=== PATIENT | female | born 1960 | race Caucasian/White ===

== ENCOUNTER 2019-01-01 07:42 | Day surgery (SDC) | payer MEDICARE ==
[~2019-01-01] VITALS: Ht 175.3 cm; Wt 114.7 kg
[2019-01-01] VITALS (9 sets, daily range): BP systolic 138–175; BP diastolic 64–93
[~2019-01-01 07:42] MED LIST: ASPI81TA46 PO; CHOL50004 PO; FURO-150 PO; INSU100V36 SQ; LEVO112T5 PO; LUBI24CA5 PO; MONT10TA21 PO; OMEP40CA37 PO; PIL2OS EACHEYE; POTA8TAB3 PO; SIMV10TA6 PO; TICA90TA2 PO
[2019-01-01] MEDS ORDERED: sod bicarbonate 150mEq in D5W 1,150 ML IV ONE (08:10)
[2019-01-01] MEDS ORDERED: diphenhydrAMINE 25mg capsule PO PRN (08:15)
[2019-01-01 09:10] LABS: BASOPHILS # (AUTO) 0.2 X10'3 (0-0.2); EOSINOPHILS # (AUTO) 0.2 X10'3 (0-0.9); EOSINOPHILS % (AUTO) 2.9 % (0-6); HEMATOCRIT 40.4 % (35.0-45.0); HEMOGLOBIN 13.3 g/dl (12.0-16.0); LYMPHOCYTES % (AUTO) 35.8 % (21-51); MEAN CORPUSCULAR HEMOGLOBIN 28.9 PG (27.0-31.0); MEAN CORPUSCULAR HGB CONC 32.9 g/dL (33.0-36.5); MEAN CORPUSCULAR VOLUME 87.7 FL (78-98); MEAN PLATELET VOLUME 8.1 FL (7.4-10.4); MONOCYTES # (AUTO) 0.5 X10'3 (0-0.9); MONOCYTES % (AUTO) 8.1 % (2-12); NEUTROPHILS # (AUTO) 2.8 X10'3 (1.8-7.7); NEUTROPHILS % (AUTO) 50.2 % (42-75); PLATELET COUNT 282 X10'3 (140-440); RED CELL DISTRIBUTION WIDTH 14.3 % (11.5-14.5); WHITE BLOOD COUNT 5.6 X10'3 (4.5-11.0)
[2019-01-01 09:17] LABS: ALBUMIN 3.1 G/DL (3.4-5.0); ANION GAP 10 (8-16); BLOOD UREA NITROGEN 18 MG/DL (7-18); BUN/CREATININE RATIO 22.2 (6.6-38.0); CALCIUM 8.9 MG/DL (8.5-10.1); CHLORIDE 107 MMOL/L (99-107); CREATININE 0.81 MG/DL (0.40-0.90); GLUCOSE 61 MG/DL (70-104); INR 1.1 INR; MAGNESIUM 1.9 MG/DL (1.5-2.4); POTASSIUM 3.8 MMOL/L (3.5-5.1); PROTHROMBIN TIME 10.7 SECONDS (9.0-12.0); SODIUM 143 MMOL/L (135-145); eGFR 72 ML/MIN
[2019-01-01] MEDS ORDERED: CLOP75TA35 PO (09:51)
[2019-01-01] MEDS ORDERED: TRAM50TA2 PO (09:51)
[2019-01-01] MEDS ORDERED: ACET-2119 PO (09:51)
[2019-01-01] MEDS ORDERED: CETI-102 PO (09:51)
[2019-01-01] MEDS ORDERED: NITR0.4T51 SL (09:51)
[2019-01-01] MEDS ORDERED: [UNRECOGNIZED DRUG - OTHER] EACHEYE (09:51)
[2019-01-01] MEDS ORDERED: DORZ10DR17 EACHEYE (09:51)
[2019-01-01] MEDS ORDERED: iohexol 350 MG/ML 50ML vial IV ONE (12:05)
[2019-01-01] MEDS ORDERED: midazolam 2 mg/2 ml injection ONE ×2 (12:05→12:19)
[2019-01-01] MEDS ORDERED: LIDOcaine 1% (10mg/ml)w/preservative injection 20ml MDV ONE (12:05)
[2019-01-01] MEDS ORDERED: fentaNYL/PF 50MCG/1 ML 2ML syringe ONE ×2 (12:05→12:19)
[2019-01-01] MEDS ORDERED: iohexol 350MG/ML 100ml bottle IV ONE (12:05)
[2019-01-01] MEDS ORDERED: proCHLORperazine 10 MG/2 ml inj ONE (12:11)
[2019-01-01] MEDS ORDERED: HYDROcodone/acetaminophen 5mg/325mg tablet PO PRN (13:20)
[2019-01-01] MEDS ORDERED: HYDROcodone/acetaminophen 10/325mg tab PO PRN (13:20)
== END 2019-01-01 16:20 | disposition home or self-care (01) ==
LOC: SSTAY O 07:42
PROVIDERS: ATTEND Internal Medicine Cardiovascular Disease
DX: R94.39 Abnormal result of other cardiovascular function study (principal); E10.35 Type 1 diabetes mellitus with proliferative diabetic retinopathy; E78.5 Hyperlipidemia, unspecified; K21.9 Gastro-esophageal reflux disease without esophagitis; E03.9 Hypothyroidism, unspecified; H42 Glaucoma in diseases classified elsewhere; J45.909 Unspecified asthma, uncomplicated; E10.39 Type 1 diabetes mellitus with other diabetic ophthalmic complication; Z95.5 Presence of coronary angioplasty implant and graft; Z98.890 Other specified postprocedural states; Z82.49 Family history of ischemic heart disease and other diseases of the circulatory system; Z72.89 Other problems related to lifestyle; Z88.0 Allergy status to penicillin; Z88.8 Allergy status to other drugs, medicaments and biological substances; Z88.1 Allergy status to other antibiotic agents; Z91.048 Other nonmedicinal substance allergy status; Z87.891 Personal history of nicotine dependence
CPT/HCPCS: 36415; 80048; 82948; 83735; 85025; 85610; 93005; 93458; 99152; 99153; A6257; J0780; J1644; J2001; J2250; J3010; Q0163; Q9967; A4620; C1760; C1769; C1894

== ENCOUNTER 2019-11-07 12:13 | Day surgery (SDC) | payer MEDICARE ==
[~2019-11-07] VITALS: Ht 172.7 cm; Wt 117.6 kg
[2019-11-07] VITALS (8 sets, daily range): BP systolic 137–159; BP diastolic 61–84
[~2019-11-07 12:13] MED LIST changes: +ACET-2119 PO; +ASPI81TA44 PO; -ASPI81TA46 PO; +CETI-90 PO; +CLOP75TA35 PO; +DORZ10DR17 EACHEYE; -LUBI24CA5 PO; +NITR0.4T51 SL; +OMEP40CA13 PO; -OMEP40CA37 PO; -PIL2OS EACHEYE; -SIMV10TA6 PO; +SIMV10TA98 PO; -TICA90TA2 PO; +TRAM50TA2 PO; +[UNRECOGNIZED DRUG - OTHER] EACHEYE
[2019-11-07] MEDS ORDERED: normal saline 1,000 ML IV SCH ×2 (12:40→19:05)
[2019-11-07] MEDS ORDERED: diphenhydrAMINE 25mg capsule PO PRN (12:40)
[2019-11-07] MEDS ORDERED: LATA5DRO EACHEYE (13:23)
[2019-11-07] MEDS ORDERED: SENN-162 PO (13:23)
[2019-11-07] MEDS ORDERED: TIZA2CAP7 PO (13:23)
[2019-11-07 14:41] LABS: BASOPHILS # (AUTO) 0.1 X10'3 (0-0.2); BASOPHILS % (AUTO) 1.9 % (0-1); EOSINOPHILS # (AUTO) 0.1 X10'3 (0-0.9); EOSINOPHILS % (AUTO) 2.3 % (0-6); HEMATOCRIT 34.4 % (35.0-45.0); HEMOGLOBIN 11.5 g/dl (12.0-16.0); LYMPHOCYTES # (AUTO) 1.8 X10'3 (1.1-4.8); LYMPHOCYTES % (AUTO) 28.2 % (21-51); MEAN CORPUSCULAR HEMOGLOBIN 26.3 PG (27.0-31.0); MEAN CORPUSCULAR HGB CONC 33.3 g/dL (33.0-36.5); MEAN PLATELET VOLUME 8.3 FL (7.4-10.4); MONOCYTES # (AUTO) 0.5 X10'3 (0-0.9); MONOCYTES % (AUTO) 7.3 % (2-12); NEUTROPHILS # (AUTO) 3.8 X10'3 (1.8-7.7); NEUTROPHILS % (AUTO) 60.3 % (42-75); PLATELET COUNT 284 X10'3 (140-440); RED BLOOD COUNT 4.35 X10'6 (4.20-5.60); RED CELL DISTRIBUTION WIDTH 15.8 % (11.5-14.5); WHITE BLOOD COUNT 6.3 X10'3 (4.5-11.0)
[2019-11-07 14:50] LABS: ALBUMIN 3.1 G/DL (3.4-5.0); ANION GAP 9 (8-16); BLOOD UREA NITROGEN 14 MG/DL (7-18); BUN/CREATININE RATIO 17.3 (6.6-38.0); CALCIUM 8.4 MG/DL (8.5-10.1); CHLORIDE 108 MMOL/L (99-107); CREATININE 0.81 MG/DL (0.40-0.90); GLUCOSE 105 MG/DL (70-104); MAGNESIUM 1.9 MG/DL (1.5-2.4); POTASSIUM 3.9 MMOL/L (3.5-5.1); SODIUM 144 MMOL/L (135-145); TOTAL CARBON DIOXIDE 27.4 MMOL/L (24-32); eGFR 72 ML/MIN
[2019-11-07] MEDS ORDERED: heparin 1,000unit/ml 10ml vial 10 ML ONE ×2 (15:44→17:45)
[2019-11-07] MEDS ORDERED: iohexol 350MG/ML 100ml bottle IV ONE ×2 (15:44→17:07)
[2019-11-07] MEDS ORDERED: LIDOcaine 1% (10mg/ml)w/preservative injection 20ml MDV ONE ×2 (15:44→17:07)
[2019-11-07] MEDS ORDERED: iohexol 350 MG/ML 50ML vial IV ONE ×2 (15:44→17:07)
[2019-11-07] MEDS ORDERED: fentaNYL/PF 50MCG/1 ML 2ML syringe ONE (17:07)
[2019-11-07] MEDS ORDERED: midazolam 2 mg/2 ml injection ONE ×2 (17:07→17:33)
[2019-11-07] MEDS ORDERED: ondansetron/PF 4mg/2ml inj IV PRN (19:05)
[2019-11-07] MEDS ORDERED: HYDROcodone/acetaminophen 10/325mg tab PO PRN (19:05)
[2019-11-07] MEDS ORDERED: proCHLORperazine 10 MG/2 ml inj IV PRN (19:05)
[2019-11-07] MEDS ORDERED: HYDROcodone/acetaminophen 5mg/325mg tablet PO PRN (19:05)
== END 2019-11-07 20:30 | disposition home or self-care (01) ==
LOC: SSTAY O 12:13
PROVIDERS: ATTEND Internal Medicine Cardiovascular Disease
DX: R07.9 Chest pain, unspecified (principal); I25.118 Atherosclerotic heart disease of native coronary artery with other forms of angina pectoris; E78.5 Hyperlipidemia, unspecified; I10 Essential (primary) hypertension; E03.9 Hypothyroidism, unspecified; E10.39 Type 1 diabetes mellitus with other diabetic ophthalmic complication; H42 Glaucoma in diseases classified elsewhere; K21.9 Gastro-esophageal reflux disease without esophagitis; J45.909 Unspecified asthma, uncomplicated; Z95.5 Presence of coronary angioplasty implant and graft; Z79.01 Long term (current) use of anticoagulants; Z79.899 Other long term (current) drug therapy; Z79.82 Long term (current) use of aspirin; Z90.710 Acquired absence of both cervix and uterus; Z98.51 Tubal ligation status; Z98.890 Other specified postprocedural states; Z72.89 Other problems related to lifestyle; Z88.0 Allergy status to penicillin; Z91.018 Allergy to other foods; Z91.09 Other allergy status, other than to drugs and biological substances; Z88.8 Allergy status to other drugs, medicaments and biological substances
CPT/HCPCS: 36415; 80048; 82948; 83735; 85025; 85610; 93005; 93458; 99152; 99153; C1769; C1894; J1644; J2001; J2250; J3010; J7030; Q0163; Q9967; 76937; A4620; A6258; C1760